=== PATIENT | female | born 1960 | race American Indian/Alaskan Native ===

== ENCOUNTER 2021-04-15 09:12 | Outpatient (CLI) | payer OTHER ==
--- NOTE | 2021-04-15 12:12 | XRay Report ---
Right shoulder-3 views INDICATION: RIGHT SHOULDER PAIN. COMPARISON: None. IMPRESSION: No acute osseous abnormality. Soft tissues are normal. Normal alignment. Mild degener ative arthrosis at the acromioclavicular and glenohumeral joints with small focus of hydroxyapatite d eposition in the region of the supraspinatus footplate measuring 6 mm on the frontal image. Signer Name: Fabien Escamilla MD Signed: 04/15/2021 12:08 PM Workstation Name: [id number]
--- NOTE | 2021-04-15 12:12 | XRay Report ---
Right foot-3 views INDICATION: BILATERAL FOOT PAIN. COMPARISON: None. 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 There is also bilateral pes planovalgus which again is most significant on the left where there is also generalized midfoot collapse. No acute osseous abnormality. Soft tissues are normal. Signer Name: Fabien Escamilla MD Signed: 04/15/2021 12:07 PM Workstation Name: [id number]
== END 2021-04-15 09:13 | disposition home or self-care (01) ==
LOC: XRAY 09:12
PROVIDERS: ATTEND Internal Medicine
DX: M19.011 Primary osteoarthritis, right shoulder (principal); M19.071 Primary osteoarthritis, right ankle and foot; M19.072 Primary osteoarthritis, left ankle and foot; M21.072 Valgus deformity, not elsewhere classified, left ankle; M21.071 Valgus deformity, not elsewhere classified, right ankle